=== PATIENT | female | born 1980 | race Caucasian/White ===

== ENCOUNTER 2020-10-25 00:55 | Inpatient (IN) | payer BC, OTHER ==
[2020-10-25] MEDS ORDERED: LIDOCAINE 0.5% (PF) 5 MG/ML (50 ML SDV) SQ PRN (06:17)
[2020-10-25] MEDS ORDERED: CARBOPROST TROMETHAMINE 250 MCG/ML 1 ML AMP IM PRN (06:17)
[2020-10-25] MEDS ORDERED: OXYTOCIN 10 UNIT/ML 1 ML VIAL IM PRN (06:17)
[2020-10-25] MEDS ORDERED: METHYLERGONOVINE 0.2 MG/ML 1 ML AMP IM PRN (06:17)
[2020-10-25] MEDS ORDERED: TERBUTALINE 1 MG/ML VIAL SQ PRN (06:17)
[2020-10-25 06:27] LABS: Glucose,Whole Blood 147 mg/dL (75-99)
[2020-10-25] MEDS: OXYTOCIN 30 UNITS/500 ML NS 30 UNIT in SALINE 1 500ML.BAG IV SCH ×2 (06:44→14:45)
[2020-10-25] MEDS: LACTATED RINGERS 1,000 ML IV SCH ×3 (06:45→12:03)
[2020-10-25 07:36] LABS: Basophils % (A) 0 %; Eosinophils # (A) 0.1 k/uL (0-0.7); Eosinophils % (A) 1 %; HGB 13.2 gm/dL (11.4-16.0); Lymphocytes # (A) 1.9 k/uL (1.0-4.8); Lymphocytes % (A) 16 %; MCH 27.6 pg (25.0-35.0); MCV 83.5 fL (80.0-100.0); Mean Platelet Volume 7.6; Monocytes # (A) 0.4 k/uL (0-1.0); Monocytes % (A) 3 %; Neutrophils # (A) 9.8 k/uL (1.3-7.7); Neutrophils % (A) 79 %; Platelet Count 332 k/uL (150-450); RBC 4.79 m/uL (3.80-5.40); RDW 13.6 % (11.5-15.5); WBC 12.3 k/uL (3.8-10.6)
[2020-10-25] MEDS ORDERED: BUTORPHANOL 1 MG/ML 1 ML VIAL IV PRN (08:42)
--- NOTE | 2020-10-25 09:53 | P.HPOB ---
History of Present Illness H&P Date: 10/25/20 Chief Complaint: IUP at 37-0/7 weeks, DM This is a 40-year-old at 37 weeks of that presents for induction of labor. Patient had a new diagnosis of type 2 diabetes in January 2020. Patient was initially on [employer] and did have a weight loss of 30 pounds and then discovered she was and subsequently taking her off of [employer]. Patient was going through diabetes education at the beginning of . Patient does have a history of gestational hypertension and was delivered early at 38 weeks with her last . This 's care has been essentially uncomplicated. Patient was placed on glyburide in the beginning of and blood pressures have been well controlled. On 10/13 estimated weight was noted to be 7 lbs. 3 oz. within normal amniotic fluid index. Blood pressures have been good in the office. Upon presentation the office patient can have an elevated blood pressure 140s over 90s and on retake she compensates to 120 over 80s. Blood sugars were noted to be increasingly elevated therefore induction of labor was discussed at 37 weeks. On bloodwork this patient has a blood type of A+, rubella status immune, RPR nonreactive, hepatitis B surface antigen negative, HIV negative. Initial preeclampsia labs were done and negative. Patient's blood pressures throughout the have been essentially normal with the exception of the last few weeks, initial blood pressures noted to be slightly elevated 140s over 90s with retakes been normal 120s over 80s. Patient does note good movement this morning, denies loss of fluid or vaginal bleeding. Patient states she did have some contractions throughout the weekend. Review of Systems Constitutional: Denies chills, Denies fatigue, Denies fever Ears, nose, mouth and throat: Denies headache Cardiovascular: Reports leg edema Respiratory: Denies dyspnea Gastrointestinal: Denies constipation, Denies diarrhea, Denies nausea, Denies vomiting Genitourinary: Reports Past Medical History Past Medical History: Diabetes Mellitus Additional Past Medical History / Comment(s): type 2 diabetic History of Any Multi-Drug Resistant Organisms: None Reported Additional Past Surgical History / Comment(s): cyst removed from right ovary. Past Anesthesia/Blood Transfusion Reactions: No Reported Reaction Past Psychological History: No Psychological Hx Reported Smoking Status: Current every day smoker Additional Drug Use History / Comment(s): pt states she smokes 5-10 cigarettes/day - Past Family History Mother Family Medical History: AFIB, Diabetes Mellitus Medications and Allergies Home Medications Medication Instructions Recorded Confirmed Type glyBURIDE [Diabeta] 2.5 mg PO AC-BID 10/25/20 10/25/20 History Allergies Allergy/AdvReac Type Severity Reaction Status Date / Time No Known Allergies Allergy Verified 10/25/20 06:16 Exam Osteopathic Statement: *. No significant issues noted on an osteopathic structural exam other than those noted in the History and Physical/Consult. 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 Amniotomy is performed and clear fluid is obtained. heart tones are noted to be category 1 although it is quite difficult to keep the baby on the monitor secondary to patient's morbid obesity. Results Result Diagrams: 10/25/20 06:59 Abnormal Lab Results - Last 24 Hours (Table) 10/25/20 10/25/20 Range/Units 06:26 06:59 WBC 12.3 H (3.8-10.6) k/uL Neutrophils # 9.8 H (1.3-7.7) k/uL POC Glucose (mg/dL) 147 H (75-99) mg/dL Assessment and Plan (1) 37 weeks gestation of Current Visit: Yes Status: Acute Code(s): Z3A.37 - 37 WEEKS GESTATION OF SNOMED Code(s): 31459961 (2) Diabetes type 2, controlled Current Visit: Yes Status: Acute Code(s): E11.9 - TYPE 2 DIABETES MELLITUS WITHOUT COMPLICATIONS SNOMED Code(s): 89675100 (3) Gestational HTN Current Visit: Yes Status: Acute Code(s): O13.9 - GESTATIONAL HTN W/O SIGN IFICANT PROTEINURIA, UNSP TRIMESTER SNOMED Code(s): 503580995 (4) Morbid obesity Current Visit: Yes Status: Acute Code(s): E66.01 - MORBID (SEVERE) OBESITY DUE TO EXCESS CALORIES SNOMED Code(s): 508937878 Plan: This is a 40-year-old 002 at 37 weeks of that presents to labor and delivery for induction of labor. Patient is known to type II diabetic on glyburide with reasonable control of her blood sugars. Over the last week blood sugars were noted to be increasing along with the last 2 blood pressures being 140s over 90s on initial presentation to the office. Patient had a normal recheck blood pressures but given the blood pressures and increasing blood sugars the decision was made to proceed with induction of labor at 37 weeks. Patient agreed with plan. Pitocin induction of labor is begun per hospital protocol. Options for analgesia are discussed including Stadol and epidural. Patient declines Stadol but will like epidural once she is deemed to be in labor. Anticipate spontaneous vaginal delivery later today.
[2020-10-25] MEDS ORDERED: ROPIVACAINE 100 MG, fentaNYL (PF). 200 MCG in SODIUM CHLORIDE 0.9% 76 ML EPIDURAL ONE (13:12)
[2020-10-25] MEDS ORDERED: LANOLIN CREAM 5 GM TUBE TOPICAL PRN (14:09)
[2020-10-25] MEDS ORDERED: ZOLPIDEM 5 MG TAB PO PRN (14:09)
[2020-10-25] MEDS ORDERED: diphenhydrAMINE 25 MG CAP PO PRN (14:09)
[2020-10-25] MEDS ORDERED: SIMETHICONE 80 MG CHEWABLE PO PRN (14:09)
[2020-10-25] MEDS ORDERED: HYDROCORTISONE 2.5% RECTAL CREAM 30 GM TUBE RECTAL PRN (14:09)
[2020-10-25] MEDS ORDERED: BENZOCAINE/MENTHOL SPRAY 1 GM/SPRAY AEROSOL TOPICAL PRN (14:09)
[2020-10-25] MEDS ORDERED: diphenhydrAMINE 50 MG CAP PO PRN (14:09)
[2020-10-25] MEDS ORDERED: diphenhydrAMINE 50 MG/ML 1 ML VIAL IVP PRN ×2 (14:09)
[2020-10-25] MEDS ORDERED: ACETAMINOPHEN TAB 325 MG TAB PO PRN (14:09)
[2020-10-25 14:13] LABS: Hemoglobin A1C 6.5 % (4.0-6.0)
--- NOTE | 2020-10-25 14:13 | P.PROBDLV ---
Vaginal Delivery Note - . Vaginal Delivery Note: This is a 40-year-old 002 at 37-3/7 weeks that presents for induction of labor secondary to known gestational diabetes with elevated blood sugars and gestational hypertension symptoms. Patient was noted to have good control throughout the of her blood sugars and the last 2 visits were noted to be slightly elevating with her 2 hour postprandials. Blood pressures in the last 2 visits 140s over 90s on recheck 120s over 80s with rest. Patient denied any preeclampsia signs. Patient was admitted to labor and delivery and Pitocin induction of labor was begun. Once regular contractions were noted amniotomy was performed and clear fluid was obtained. Patient soon became uncomfortable and requested epidural placement. Epidural was placed without difficulty by the anesthesia department. Patient progressed to complete began pushing and had a normal spontaneous vaginal delivery of a viable male at 1358, infant was noted to be in the occiput transverse presentation with a right compound hand, mild shoulder dystocia was noted reduced with Leigh Ann. Apgars of 9 and 9 at one and 5 minutes respectively. No clavicle flexion fracture was appreciated after delivery, good mobility was noted. After two-minute delayed the umbo cord was doubly clamped and cut and was handed to the maternal abdomen. No cord blood was needed. The placenta was delivered spontaneous intact with three-vessel cord being noted. On inspection the patient's vaginal vault no lacerations were appreciated. Uterus is noted to be firm and below the umbilicus. Estimated blood loss 100 mL. Patient and tolerated delivery well and are resting comfortably.
[2020-10-25] MEDS ORDERED: OXYTOCIN 30 UNITS/500 ML NS 30 UNIT in SALINE 1 500ML.BAG IV SCH (14:15)
[2020-10-25 14:36] LABS: Glucose,Whole Blood 105 mg/dL (75-99)
[2020-10-25] MEDS: IBUPROFEN 600 MG TAB PO SCH ×2 (15:56→20:44)
[2020-10-25 20:25] LABS: Glucose,Whole Blood 130 mg/dL (75-99)
[2020-10-25] MEDS: SENNOSIDES-DOCUSATE SODIUM 1 EACH TAB PO SCH (20:44)
[2020-10-25] MEDS: glipiZIDE 5 MG TAB PO SCH (20:50)
[2020-10-26] MEDS: IBUPROFEN 600 MG TAB PO SCH ×3 (07:11→13:49)
[2020-10-26 08:11] LABS: Glucose,Whole Blood 103 mg/dL (75-99)
--- NOTE | 2020-10-26 08:43 | P.DS ---
Providers Date of admission: 10/25/20 00:55 Expected date of discharge: 10/26/20 Attending physician: Eli Weaver Primary care physician: Stated None - Discharge Diagnosis(es) (1) 37 weeks gestation of Current Visit: Yes Status: Acute (2) Diabetes type 2, controlled Current Visit: Yes Status: Acute (3) Gestational HTN Current Visit: Yes Status: Acute (4) Morbid obesity Current Visit: Yes Status: Acute (5) Status post vaginal delivery Current Visit: Yes Status: Acute Hospital Course: This is a 40-year-old that presented to labor and delivery yesterday at 37-3/7 weeks for planned induction of labor secondary to gestational diabetes on glyburide, elevated blood pressures. Patient was noted to have increasingly elevated blood sugars despite being on glyburide and noted blood pressures that were increasing 140s over 90s without signs or symptoms of preeclampsia. Recheck on blood pressures were noted to be normal. Patient was counseled on induction of labor given these above findings. Patient was admitted to labor and delivery and Pitocin induction of labor was begun. Once regular contractions were appreciated amniotomy was performed and clear fluid was obtained. Patient soon became uncomfortable and requested epidural placement. Epidural was placed without difficulty by the anesthesia department. Patient progressed to complete began pushing and had a normal spontaneous vaginal delivery with a mild shoulder dystocia of a viable male , at 1358, weight of 8 lbs. 8 oz. with Apgars of 9 and 9 at one and 5 minutes respectively. No vaginal lacerations were appreciated on delivery. Patient's course has been uneventful, on this day #1 she is ambulating and voiding without difficulty. She is tolerating a regular diet without nausea or vomiting. She states her pain is well-controlled with oral Motrin. She is bottle feeding. She would like discharge home at 24 hours. was examined by in-house Joss with a normal exam. No clavicle fracture or deficit was appreciated. Patient Condition at Discharge: Good Plan - Discharge Summary New Discharge Prescriptions: No Action glyBURIDE [Diabeta] 2.5 mg PO AC-BID Discharge Medication List glyBURIDE [Diabeta] 2.5 mg PO AC-BID 10/25/20 [History] Follow up Appointment(s)/Referral(s): Eli Weaver DO [Doctor of Osteopathic Medicine] - 4 Weeks Patient Instructions/Handouts: Vaginal Delivery (DC), Vaginal Delivery (GEN) Discharge Disposition: HOME SELF-CARE
[2020-10-26 09:17] VITALS: BP 119/70; PULSE 63; RESP 16; TEMP 98.1
[2020-10-26] MEDS: SENNOSIDES-DOCUSATE SODIUM 1 EACH TAB PO SCH (09:18)
[2020-10-26] MEDS: glipiZIDE 5 MG TAB PO SCH (09:18)
[2020-10-26 11:43] LABS: Glucose,Whole Blood 168 mg/dL (75-99)
== END 2020-10-26 14:30 | disposition home or self-care (01) | DRG 807 ==
LOC: 4FBP 00:55
PROVIDERS: ADMIT Obstetrics & Gynecology Obstetrics; ATTEND Obstetrics & Gynecology Obstetrics
PROC: 10E0XZZ Delivery of Products of Conception, External Approach (ICD-10-PCS; principal; 2020-10-25)
DX: O13.4 Gestational [pregnancy-induced] hypertension without significant proteinuria, complicating childbirth (principal); Z37.0 Single live birth; E66.01 Morbid (severe) obesity due to excess calories; F17.210 Nicotine dependence, cigarettes, uncomplicated; O24.429 Gestational diabetes mellitus in childbirth, unspecified control; O32.2XX0 Maternal care for transverse and oblique lie, not applicable or unspecified; O66.0 Obstructed labor due to shoulder dystocia; O99.214 Obesity complicating childbirth; O99.334 Smoking (tobacco) complicating childbirth; Z3A.37 37 weeks gestation of pregnancy; Z83.3 Family history of diabetes mellitus
CPT/HCPCS: 83036; 85025; 86850; 86900; 86901